=== PATIENT | male | born 1980 | race Caucasian/White ===

== ENCOUNTER 2020-02-24 20:15 | Emergency (ER) | payer MEDICAID ==
[~2020-02-24] VITALS: Ht 193 cm; Wt 141.1 kg
[~2020-02-24 20:15] MED LIST: ACETAMINOPHEN-1 EAC1 PO; ALBUTEROL; ALBUTEROL INHAL17 GM IH; AZITHROMYCIN 2250 MG PO; AZITHROMYCIN PO; CLARITIN10 MG PO; MEDROLDOSEPACK PO; MUCINEX DM TABL1 TA1 PO; NORCO 5-325 TA1 EACH PO; PHENERGAN 25 MG25 M1 PO; PREDNISONE 20 M20 MG PO; PRILOSEC 20 MG20 MG PO; PROAIR HFA8.5 GM IH; PROAIR HFA8.5 GM INH; SINGULAIR 10 MG10 M1 PO; TESSALON200 MG PO; VALIUM5 MG PO; VENTOLIN HFA 1818 GM INH; VENTOLIN17 GM INH; ZOLOFT25 MG PO; ZPAK PO
[2020-02-24] MEDS ORDERED: CLONAZEPAM 0.50.5 M1 PO (21:45)
[2020-02-24 21:52] LABS: URINE BILIRUBIN NEGATIVE (Negative); URINE BLOOD NEGATIVE (Negative); URINE CLARITY CLEAR; URINE COLOR YELLOW; URINE GLUCOSE-RANDOM NEGATIVE (Negative); URINE KETONES NEGATIVE (Negative); URINE LEUKOCYTES-REFLEX NEGATIVE (Negative); URINE NITRITE-REFLEX NEGATIVE (Negative); URINE PROTEIN NEGATIVE (Negative); URINE UROBILINOGEN 0.2 E.U./dl (0.2-1.0)
[2020-02-24 22:18] LABS: AMP/METHAMP Negative (Negative); BARBITURATES Negative (Negative); BENZODIAZEPINES Negative (Negative); COCAINE Negative (Negative); METHADONE Negative (Negative); OPIATES Negative (Negative); PCP Negative (Negative); THC POSITIVE (Negative)
[2020-02-24] MEDS ORDERED: FLEXERIL PO (23:50)
[2020-02-24] MEDS ORDERED: HYDROCODON-ACE1 EAC8 PO (23:50)
[2020-02-25 00:16] VITALS: BP 111/70
== END 2020-02-25 00:19 | disposition home or self-care (01) ==
LOC: M.ERS 20:15
PROVIDERS: Emergency Medicine
DX: M54.5 Low back pain (principal); R10.31 Right lower quadrant pain; R30.9 Painful micturition, unspecified; Z87.442 Personal history of urinary calculi; J45.909 Unspecified asthma, uncomplicated; Z98.890 Other specified postprocedural states; Z79.899 Other long term (current) drug therapy; Z91.041 Radiographic dye allergy status; Z88.8 Allergy status to other drugs, medicaments and biological substances

== ENCOUNTER 2020-03-20 17:24 | Emergency (ER) | payer MEDICAID, MEDICARE ==
[~2020-03-20] VITALS: Ht 193 cm; Wt 139.7 kg
[~2020-03-20 17:24] MED LIST changes: +CLONAZEPAM 0.50.5 M1 PO; +FLEXERIL PO; +HYDROCODON-ACE1 EAC8 PO
[2020-03-20] MEDS ORDERED: HUMIRA40 MG/0.8 SQ (17:38)
[2020-03-20] MEDS ORDERED: DICLOFENAC SOD100 G1 TOP (18:53)
[2020-03-20 19:11] VITALS: BP 126/66
== END 2020-03-20 19:11 | disposition home or self-care (01) ==
LOC: M.ERS 17:24
DX: M25.511 Pain in right shoulder (principal); J45.909 Unspecified asthma, uncomplicated; Z91.041 Radiographic dye allergy status; Z88.6 Allergy status to analgesic agent

== ENCOUNTER 2020-10-09 20:43 | Emergency (ER) | payer MEDICARE, MEDICAID ==
[~2020-10-09] VITALS: Ht 193 cm; Wt 138.3 kg
[~2020-10-09 20:43] MED LIST changes: +DICLOFENAC SOD100 G1 TOP; +HUMIRA40 MG/0.8 SQ
[2020-10-09 21:45] LABS: ABSOLUTE BASOPHILS 0.1 thou/uL (0.0-0.2); ABSOLUTE EOSINOPHILS 0.4 thou/uL (0.0-0.7); ABSOLUTE LYMPHOCYTES 2.9 thou/uL (0.8-5.3); ABSOLUTE MONOCYTES 0.5 thou/uL (0.0-1.2); BASOPHILS 1.5 %; EOSINOPHILS 4.7 %; HEMATOCRIT 39.9 % (42.0-52.0); HEMOGLOBIN 13.7 gm/dL (14.0-18.0); LYMPHOCYTES 32.1 %; MCHC 34.2 g/dL (28.0-37.0); MCV 84.8 fL (80.0-100.0); MONOCYTES 5.6 %; MPV 8.5 fl. (7.2-11.1); NUCLEATED RBCS 0 /100WBC; PLATELET COUNT* 360 thou/uL (150-400); POLYS 56.1 %; RBC 4.71 mil/uL (4.50-6.00); RDW-CV 13.7 % (10.5-14.5)
[2020-10-09 21:54] LABS: CALCIUM 8.4 mg/dL (8.5-10.1); CREATININE 0.8 mg/dL (0.6-1.3); POTASSIUM 3.6 mmol/L (3.5-5.1)
[2020-10-09 21:58] LABS: ALBUMIN 3.6 g/dL (3.4-5.0); TOTAL BILIRUBIN 0.4 mg/dL (<0.1-1.0); TOTAL PROTEIN 7.8 g/dL (6.4-8.2)
[2020-10-09] MEDS ORDERED: CEFDINIR300 MG PO ×2 (22:21→22:26)
[2020-10-09] MEDS ORDERED: ZPAK PO ×2 (22:21→22:26)
[2020-10-09 22:58] VITALS: BP 119/71
--- NOTE | 2020-10-10 14:00 | EKG ---
[place] [address] ELECTROCARDIOGRAM REPORT Name: DERIAN GILL Room: [facility]#: [id number] Admission: 10/09/20 Attend Phys: Discharge: 10/09/20 Date of : 84 Date of Service: 10/09/202052 Report #: [id number] THIS REPORT FOR: //name// [facility] ED Test Date: 2020-10-09 Test Time: 20:53:26 Pat Name: DERIAN GILL Department: Room: Gender: [employer] Magistrate: [place] : 1980 Requested By: Melissa Ramesh Order Number: [id number] MD: Rob Schwarz Measurements Intervals [place] Rate: 74 P: 58 [place]: 207 QRS: 18 QRSD: 90 T: 41 QT: 379 QTc: 421 Interpretive Statements Sinus rhythm Borderline prolonged [place] interval No previous ECG available for comparison Electronically Signed On 10-10-2020 13:59:44 CDT by Rob Schwarz [email or web address] <ELECTRONICALLY SIGNED> By: Rob Schwarz MD, [facility] 10/10/20 1359 52 52 Rob Schwarz MD, [facility] /EPI
== END 2020-10-09 22:59 | disposition home or self-care (01) ==
LOC: M.ERS 20:43
PROVIDERS: Personal Emergency Response Attendant
DX: J18.9 Pneumonia, unspecified organism (principal); Z20.822 Contact with and (suspected) exposure to COVID-19; J45.909 Unspecified asthma, uncomplicated; Z91.041 Radiographic dye allergy status; Z88.6 Allergy status to analgesic agent

== ENCOUNTER 2020-10-27 10:51 | Emergency (ER) | payer MEDICARE, MEDICAID ==
[~2020-10-27] VITALS: Ht 193 cm; Wt 134.7 kg
[~2020-10-27 10:51] MED LIST changes: +CEFDINIR300 MG PO
[2020-10-27] MEDS ORDERED: HYDROCODON-ACE1 EAC7 PO (12:05)
[2020-10-27 12:11] VITALS: BP 134/78
== END 2020-10-27 12:11 | disposition home or self-care (01) ==
LOC: M.ERS 10:51
DX: S46.812A Strain of other muscles, fascia and tendons at shoulder and upper arm level, left arm, initial encounter (principal); J45.909 Unspecified asthma, uncomplicated; Z91.041 Radiographic dye allergy status; Z88.6 Allergy status to analgesic agent; X50.9XXA Other and unspecified overexertion or strenuous movements or postures, initial encounter; Y93.89 Activity, other specified; Y92.89 Other specified places as the place of occurrence of the external cause; Y99.8 Other external cause status

== ENCOUNTER 2020-11-01 18:15 | Emergency (ER) | payer MEDICARE, MEDICAID ==
[~2020-11-01] VITALS: Ht 193 cm; Wt 133.8 kg
[~2020-11-01 18:15] MED LIST changes: +HYDROCODON-ACE1 EAC7 PO
[2020-11-01 19:10] LABS: HEMOGLOBIN 13.3 gm/dL (14.0-18.0)
[2020-11-01 19:18] LABS: CALCIUM 8.2 mg/dL (8.5-10.1); CREATININE 0.8 mg/dL (0.6-1.3)
[2020-11-01 19:28] LABS: ABSOLUTE BASOPHILS 0.1 thou/uL (0.0-0.2); ABSOLUTE EOSINOPHILS 0.5 thou/uL (0.0-0.7); ABSOLUTE LYMPHOCYTES 2.5 thou/uL (0.8-5.3); ABSOLUTE MONOCYTES 0.5 thou/uL (0.0-1.2); ABSOLUTE NEUTROPHILS 4.8 thou/uL (1.6-8.1); BASOPHILS 0.8 %; EOSINOPHILS 5.6 %; HEMATOCRIT 38.7 % (42.0-52.0); LYMPHOCYTES 29.9 %; MCHC 34.4 g/dL (28.0-37.0); MCV 84.1 fL (80.0-100.0); MONOCYTES 6.4 %; MPV 7.9 fl. (7.2-11.1); NUCLEATED RBCS 0 /100WBC; PLATELET COUNT* 334 thou/uL (150-400); POLYS 57.3 %; RDW-CV 13.8 % (10.5-14.5); WBC 8.4 thou/uL (4.0-11.0)
[2020-11-01 19:29] LABS: ALBUMIN 3.7 g/dL (3.4-5.0); TOTAL BILIRUBIN 0.5 mg/dL (<0.1-1.0); TOTAL PROTEIN 7.8 g/dL (6.4-8.2)
[2020-11-01 19:48] LABS: POTASSIUM 3.8 mmol/L (3.5-5.1)
[2020-11-01 20:42] VITALS: BP 118/88
--- NOTE | 2020-11-02 09:59 | EKG ---
[place] [address] ELECTROCARDIOGRAM REPORT Name: DERIAN GILL Room: [facility]#: [id number] Admission: 11/01/20 Attend Phys: Discharge: 11/01/20 Date of : 84 Date of Service: 11/01/201821 Report #: [id number] THIS REPORT FOR: //name// [facility] ED Test Date: 2020-11-01 Test Time: 18:22:21 Pat Name: DERIAN GILL Department: Room: Gender: [place] Head: [facility] : 1980 Requested By: Megan Rabago Order Number: [id number] MD: Geovanni Aquino Measurements Intervals [place] Rate: 73 P: 53 [place]: 201 QRS: 24 QRSD: 96 T: 41 QT: 371 QTc: 409 Interpretive Statements Sinus rhythm Compared to ECG 10/09/2020 20:53:26 No significant changes Electronically Signed On 11-02-2020 9:59:40 CDT by Geovanni Aquino [email or web address] <ELECTRONICALLY SIGNED> By: Geovanni Aquino MD, [facility] 11/02/2059 182 21 Geovanni Aquino MD, [facility] /EPI
== END 2020-11-01 20:43 | disposition home or self-care (01) ==
LOC: M.ERS 18:15
PROVIDERS: Physician Assistant
DX: R07.89 Other chest pain (principal); Z20.822 Contact with and (suspected) exposure to COVID-19; J45.909 Unspecified asthma, uncomplicated; Z91.041 Radiographic dye allergy status; Z88.5 Allergy status to narcotic agent; Z88.6 Allergy status to analgesic agent; Z79.899 Other long term (current) drug therapy

== ENCOUNTER 2020-11-16 17:34 | Emergency (ER) | payer MEDICARE, MEDICAID ==
[~2020-11-16] VITALS: Ht 193 cm; Wt 136.1 kg
[2020-11-16 20:10] LABS: HEMATOCRIT 41.8 % (42.0-52.0); HEMOGLOBIN 13.8 gm/dL (14.0-18.0); MCV 84.7 fL (80.0-100.0); NUCLEATED RBCS 0 /100WBC; PLATELET COUNT* 338 thou/uL (150-400); RBC 4.94 mil/uL (4.50-6.00); RDW-CV 13.7 % (10.5-14.5); WBC 9.3 thou/uL (4.0-11.0)
[2020-11-16 20:15] LABS: CALCIUM 8.6 mg/dL (8.5-10.1); CREATININE 0.9 mg/dL (0.6-1.3); POTASSIUM 3.7 mmol/L (3.5-5.1)
[2020-11-16 20:25] LABS: ALBUMIN 3.7 g/dL (3.4-5.0); MAGNESIUM 2.2 mg/dL (1.8-2.4); TOTAL BILIRUBIN 0.3 mg/dL (<0.1-1.0); TOTAL PROTEIN 7.7 g/dL (6.4-8.2)
[2020-11-16 21:02] LABS: ABSOLUTE EOSINOPHILS 0.5 thou/uL (0.0-0.7); ABSOLUTE LYMPHOCYTES 3.3 thou/uL (0.8-5.3); ABSOLUTE MONOCYTES 0.4 thou/uL (0.0-1.2); ABSOLUTE NEUTROPHILS 5.2 thou/uL (1.6-8.1)
[2020-11-16 21:03] LABS: PLATELET ESTIMATE ADEQUATE
[2020-11-16] MEDS ORDERED: FLEXERIL PO (22:03)
[2020-11-16 22:19] VITALS: BP 121/75
--- NOTE | 2020-11-17 11:24 | EKG ---
[place] [address] ELECTROCARDIOGRAM REPORT Name: DERIAN GILL Room: [facility]#: [id number] Admission: 11/16/20 Attend Phys: Discharge: 11/16/20 Date of : 84 Date of Service: 11/16/20 1739 Report #: [id number] THIS REPORT FOR: //name// [facility] ED Test Date: 2020-11-16 Test Time: 17:39:50 Pat Name: DERIAN GILL Department: Room: Gender: [employer]: : 1980 Requested By: Socorro Schafer Order Number: [id number] MD: Geovanni Aquino Measurements Intervals [place] Rate: 74 P: 64 [place]: 206 QRS: 32 QRSD: 88 T: 61 QT: 377 QTc: 419 Interpretive Statements Incomplete analysis due to missing data in precordial lead(s) Sinus rhythm Borderline prolonged [place] interval ST elev, probable normal early repol pattern Baseline wander in lead(s) III,aVF,V2 Missing lead(s): V6 Compared to ECG 11/01/2020 18:22:21 no change Electronically Signed On 11-17-2020 11:23:57 CDT by Geovanni Aquino [email or web address] <ELECTRONICALLY SIGNED> By: Geovanni Aquino MD, [facility] 11/17/20 1123 1739 1739 Geovanni Aquino MD, [facility] /EPI
--- NOTE | 2020-11-18 10:03 | EKG ---
[place] [address] ELECTROCARDIOGRAM REPORT Name: DERIAN GILL Room: [facility]#: [id number] Admission: 11/16/20 Attend Phys: Discharge: 11/16/20 Date of : 84 Date of Service: 11/16/201740 Report #: [id number] THIS REPORT FOR: //name// [facility] ED Test Date: 2020-11-16 Test Time: 17:41:46 Pat Name: DERIAN GILL Department: Room: Gender: [employer]: : 1980 Requested By: Socorro Schafer Order Number: [id number] MD: Geovanni Aquino Measurements Intervals [place] Rate: 71 P: 53 [place]: 212 QRS: 30 QRSD: 95 T: 56 QT: 382 QTc: 416 Interpretive Statements Sinus rhythm Prolonged [place] interval Compared to ECG 11/16/2020 17:39:50 no change Electronically Signed On 11-18-2020 10:03:33 CDT by Geovanni Aquino [email or web address] <ELECTRONICALLY SIGNED> By: Geovanni Aquino MD, [facility] 11/18/20 1003 174 174 Geovanni Aquino MD, [facility] /EPI
== END 2020-11-16 22:20 | disposition home or self-care (01) ==
LOC: M.ERS 17:34
PROVIDERS: Nurse Practitioner Family
DX: R07.89 Other chest pain (principal); J45.909 Unspecified asthma, uncomplicated; K21.9 Gastro-esophageal reflux disease without esophagitis; Z98.890 Other specified postprocedural states; E66.9 Obesity, unspecified; Z88.1 Allergy status to other antibiotic agents; Z88.6 Allergy status to analgesic agent

== ENCOUNTER 2021-03-01 16:39 | Emergency (ER) | payer MEDICARE, MEDICAID ==
[~2021-03-01] VITALS: Ht 193 cm; Wt 138.3 kg
[2021-03-01 17:06] VITALS: BP 137/86
[2021-03-01 17:17] LABS: URINE BILIRUBIN NEGATIVE (Negative); URINE BLOOD TRACE (Negative); URINE CLARITY CLEAR; URINE COLOR YELLOW; URINE GLUCOSE-RANDOM NEGATIVE (Negative); URINE KETONES NEGATIVE (Negative); URINE LEUKOCYTES-REFLEX NEGATIVE (Negative); URINE NITRITE-REFLEX NEGATIVE (Negative); URINE PROTEIN NEGATIVE (Negative); URINE SPECIFIC GRAVITY 1.015 (1.005-1.030); URINE UROBILINOGEN 0.2 E.U./dl (0.2-1.0)
== END 2021-03-01 19:19 | disposition left against medical advice (07) ==
LOC: M.ERS 16:39
PROVIDERS: Nurse Practitioner Family
DX: M54.59 Other low back pain (principal); Z53.21 Procedure and treatment not carried out due to patient leaving prior to being seen by health care provider